=== PATIENT | female | born 2000 | race Caucasian/White ===

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

== ENCOUNTER 2019-08-25 15:47 | Emergency (ER) | payer BC, OTHER ==
[2019-08-25] MEDS ORDERED: ONDANSETRON ODT 8 MG TAB SL ONE (17:08)
[2019-08-25 17:29] VITALS: O2SAT 99
[2019-08-25] MEDS ORDERED: AMOXICILLIN & POT CLAVULANATE 875 MG TAB PO ONE (18:17)
[2019-08-25] MEDS ORDERED: NITROFURANTOIN MONOHYDRATE MAC 100 MG CAP PO ONE (18:17)
--- NOTE | 2019-08-25 18:21 | ED.PDOC ---
History of Present Illness - General Chief Complaint: General Stated Complaint: fever,sore throat,body aches,chest tightness Time Seen by Provider: 08/25/19 15:48 Source: patient Exam Limitations: no limitations - History of Present Illness Initial Comments: the patient is a 19-year-old female presenting to emergency room secondary to fever, sore throat, runny nose and body aches. The patient has had a history of multiple episodes of urosepsis in the past as well. She frequently gets these without any real urinary symptoms. She is also having some mild nausea. No syncope. Timing/Duration: 24 hours Severity: moderate Improving Factors: nothing Worsening Factors: nothing Associated Symptoms: cough, fever/chills, loss of appetite, malaise, nausea/vomiting Allergies/Adverse Reactions: Allergies Latex Allergy (Verified 09/30/18 11:47) Home Medications: Ambulatory Orders Etonogestrel [Nexplanon] 68 mg SC ONCE 09/30/18 Amoxicillin & Pot Clavulanate [Augmentin Tab] 875 mg PO BID #14 tab 08/25/19 Nitrofurantoin Monohydrate Mac [Macrobid] 100 mg PO BID #14 capsule 08/25/19 Review of Systems - Review of Systems Constitutional: States: chills, fever, malaise EENTM: States: nose congestion, throat pain Respiratory: States: cough Cardiology: States: no symptoms reported Gastrointestinal/Abdominal: States: nausea Genitourinary: States: no symptoms reported Musculoskeletal: States: back pain - mild right flank pain. Skin: States: no symptoms reported Neurological: States: headache Endocrine: States: no symptoms reported All other Systems: No Change from Baseline Past Medical History (General) - Patient Medical History Hx Seizures: No Hx Stroke: No Hx Asthma: No Hx of COPD: No Hx Congestive Heart Failure: No Hx Pacemaker: No Hx Hypertension: No Hx Diabetes: No Hx MRSA: No Surgical History: no surgical history - Vaccination History Hx Tetanus, Diphtheria Vaccination: Yes Hx Influenza Vaccination: Yes Hx Pneumococcal Vaccination: No - Social History Hx Tobacco Use: No Hx Alcohol Use: No Hx Substance Use: No Hx Physical Abuse: No Hx Emotional Abuse: No - Female History Patient is a Female of Child Bearing Age (10 -59 yrs old): Yes Patient : No Family Medical History - Family History Mother Family History: No Known Living Status: Still Living Physical Exam - Physical Exam General Appearance: Alert, No apparent distress Eye Exam: bilateral normal - ild chronic ptosis of the left eyelid. Ears, Nose, Throat: hearing grossly normal, nasal congestion, pharyngeal erythema Neck: full range of motion, supple Respiratory: lungs clear, normal breath sounds, no respiratory distress, no accessory muscle use Cardiovascular/Chest: normal peripheral pulses, regular rate, rhythm - borderline sinus tachycardia, no edema Peripheral Pulses: radial,right: 2+, radial,left: 2+ Gastrointestinal/Abdominal: non tender, soft Rectal Exam: deferred Back Exam: no CVA tenderness, no vertebral tenderness Extremity: normal range of motion, non-tender, normal inspection, no pedal edema, normal capillary refill Neurologic: rink rat II-XII nml as tested, alert, normal mood/affect, oriented x 3 Skin Exam: normal color Comments: Vital Signs - 8 hr 08/25/19 08/25/19 08/25/19 15:51 16:50 17:00 Temperature 98.7 F Pulse Rate [ 110 H 95 H 83 Left Brachial] Respiratory 20 20 18 Rate Blood Pressure 137/80 113/66 109/68 [Left Arm] O2 Sat by Pulse 99 98 99 Oximetry Progress - Progress Progress: 08/25/19 18:21 the patient is a 19-year-old female presenting to the emergency room secondary to symptoms of sore throat and runny nose and body aches along with fever and some mild flank pain. She has tested negative for flu and strep. The upper respiratory tract symptoms are most likely just a common cold. [id number] medication should help reduce symptoms. The patient does have another urinary tract infection. Given her history she is going to be double covered with Augmentin and Macrobid. She needs to take these medications with food as they can make the nausea worse. She does already have some Zofran at home for as needed use. ER warnings were given for any significant worsening. Keep well hydrated. Follow back up with primary care doctor towards the end of the week to follow up culture and repeat a urinalysis. benjamin solano [id number] - Results/Orders Results/Orders: Laboratory Tests 08/25/19 08/25/19 15:56 17:48 Urine Color Yellow Urine Appearance Sl cloudy Urine pH 7.0 Ur Specific [place] 1.020 Urine Protein Negative Urine Glucose (UA) Negative Urine Ketones Negative Urine Blood Trace-lysed H Urine Nitrite Negative Urine Bilirubin Negative Urine Urobilinogen 0.2 Ur Leukocyte Esterase Small H Urine RBC 5-10 H Urine WBC 20-30 H Ur Epithelial Cells 10-20 Urine Bacteria 2+ H Urine Mucus Small Group A Strep Rapid Negative influenza is negative. Departure - Departure Clinical Impression: Common cold UTI (urinary tract infection) Qualifiers: Urinary tract infection type: acute cystitis Hematuria presence: without hematuria Qualified Code(s): N30.00 - Acute cystitis without hematuria Disposition: Discharge to Home or Self Care Condition: Fair Departure Forms: ED Discharge - Pt. Copy, Patient Portal Self Enrollment Instructions: Urinary Tract Infection, Adult (DC) Diet: bland diet Activity: increase activity as tolerated Referrals: Patricia Grossman NP [Primary Care Provider] - 1-2 Weeks Prescriptions: Amoxicillin & Pot Clavulanate [Augmentin Tab] 875 mg PO BID #14 tab Nitrofurantoin Monohydrate Mac [Macrobid] 100 mg PO BID #14 capsule Home Medications: Ambulatory Orders Etonogestrel [Nexplanon] 68 mg SC ONCE 09/30/18 Amoxicillin & Pot Clavulanate [Augmentin Tab] 875 mg PO BID #14 tab 08/25/19 Nitrofurantoin Monohydrate Mac [Macrobid] 100 mg PO BID #14 capsule 08/25/19 Additional Instructions: the patient is a 19-year-old female presenting to the emergency room secondary to symptoms of sore throat and runny nose and body aches along with fever and some mild flank pain. She has tested negative for flu and strep. The upper respiratory tract symptoms are most likely just a common cold. [id number] medication should help reduce symptoms. The patient does have another urinary tract infection. Given her history she is going to be double covered with Augmentin and Macrobid. She needs to take these medications with food as they can make the nausea worse. She does already have some Zofran at home for as needed use. ER warnings were given for any significant worsening. Keep well hydrated. Follow back up with primary care doctor towards the end of the week to follow up culture and repeat a urinalysis.
[2019-08-25 18:42] VITALS: BP 101/67; TEMP 98.5
== END 2019-08-25 18:30 | disposition home or self-care (01) ==
LOC: ER 15:47
DX: N30.00 Acute cystitis without hematuria (principal); J00 Acute nasopharyngitis [common cold]; Z87.440 Personal history of urinary (tract) infections; Z91.010 Allergy to peanuts

== ENCOUNTER 2019-09-13 23:21 | Emergency (ER) | payer BC, OTHER ==
--- NOTE | 2019-09-13 23:42 | ED.PDOC ---
History of Present Illness - General Chief Complaint: General Stated Complaint: headache, n/v x3 days Time Seen by Provider: 09/13/19 23:34 Source: patient, RN notes reviewed, Vital Signs reviewed - History of Present Illness Initial Comments: Patient presents for evaluation of headache x 3 days. She denies fevers, chills, vision changes, weakness in extremities or numbness in extremities. She has had nausea and decreased appetite. Recently had flu two weeks ago. Headache gradual in nature. Took tylenol earlier this evening. No previous hx of migraines. Allergies/Adverse Reactions: Allergies Latex Allergy (Verified 09/30/18 11:47) Home Medications: Ambulatory Orders Etonogestrel [Nexplanon] 68 mg SC ONCE 09/30/18 Amoxicillin & Pot Clavulanate [Augmentin Tab] 875 mg PO BID #14 tab 08/25/19 Nitrofurantoin Monohydrate Mac [Macrobid] 100 mg PO BID #14 capsule 08/25/19 Promethazine Tab [Phenergan Tablet] 25 mg PO BID PRN #10 tab 09/14/19 Review of Systems - Review of Systems Constitutional: Denies: chills, fever EENTM: Denies: blurred vision, double vision, nose congestion Respiratory: Denies: cough, short of breath Gastrointestinal/Abdominal: States: nausea, vomiting. Denies: abdominal pain Musculoskeletal: Denies: neck pain Neurological: States: headache. Denies: numbness, weakness Past Medical History (General) - Patient Medical History Hx Seizures: No Hx Stroke: No Hx Asthma: No Hx of COPD: No Hx Congestive Heart Failure: No Hx Pacemaker: No Hx Hypertension: No Hx Diabetes: No Hx MRSA: No - Vaccination History Hx Tetanus, Diphtheria Vaccination: Yes Hx Influenza Vaccination: Yes Hx Pneumococcal Vaccination: No - Social History Hx Tobacco Use: No Hx Alcohol Use: No Hx Substance Use: No Hx Physical Abuse: No Hx Emotional Abuse: No - Female History Patient : No Family Medical History - Family History Mother Family History: No Known Living Status: Still Living Physical Exam - Physical Exam General Appearance: Alert, Other - Non-toxic. 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 She is afebrile and non-toxic. Symptoms do not suggest meningitis or SAH. ALBERTS has been ongoing for a few days. She has no leukocytosis. UA was not significant for signs of UTI. There was signs of dehydration on CMP. She was given a liter of IV fluids with improvement in symptoms. There was some improvement in nausea after zofran however some persistence. Therefore, she was given phernergan and toradol with improvement in headache and nausea. There was residual ALBERTS, therefore she was given benadryl and magnesium 2g over 15 minutes. This ALBERTS seems somewhat secondary to dehydration vs. new onset migraines. She is feeling better. Will discharge home with plans for outpatient follow-up. - Results/Orders Results/Orders: Laboratory Results WBC 8.5 K/mm3 (4.8-10.8) 09/14/19 00:05 RBC 4.48 M/mm3 (4.20-5.40) 09/14/19 00:05 Hgb 13.1 gm/dL (12.0-16.0) 09/14/19 00:05 Hct 38.7 % (36.0-47.0) 09/14/19 00:05 MCV 86.4 fl (81.0-99.0) 09/14/19 00:05 MCH 29.3 pg (27.0-31.0) 09/14/19 00:05 MCHC 33.9 g/dL (33.0-37.0) 09/14/19 00:05 RDW 13.3 % (11.5-14.5) 09/14/19 00:05 Plt Count 243 K/mm3 (130-400) 09/14/19 00:05 MPV 9.2 fl (7.40-10.4) 09/14/19 00:05 Absolute Neuts (auto) 4.40 K/uL (1.8-6.8) 09/14/19 00:05 Absolute Lymphs (auto) 3.30 K/uL (1.0-3.4) 09/14/19 00:05 Absolute Monos (auto) 0.60 K/uL (0.2-0.8) 09/14/19 00:05 Absolute Eos (auto) 0.10 K/uL (0.0-0.4) 09/14/19 00:05 Absolute Basos (auto) 0.10 K/uL (0.0-0.1) 09/14/19 00:05 Neutrophils % 51.3 % (42.0-78.0) 09/14/19 00:05 Lymphocytes % 38.9 % (20.0-50.0) 09/14/19 00:05 Monocytes % 7.6 % (2.0-9.0) 09/14/19 00:05 Eosinophils % 1.3 % (1.0-5.0) 09/14/19 00:05 Basophils % 0.9 % (0.0-2.0) 09/14/19 00:05 Sodium 141 mmol/L (135-145) 09/14/19 00:05 Potassium 3.3 mmol/L (3.6-5.0) L 09/14/19 00:05 Chloride 106 mmol/L (101-111) 09/14/19 00:05 Carbon Dioxide 23 mmol/L (21-31) 09/14/19 00:05 Anion Gap 15.3 (12-18) 09/14/19 00:05 BUN 11 mg/dL (7-18) 09/14/19 00:05 Creatinine 0.50 mg/dL (0.6-1.3) L 09/14/19 00:05 BUN/Creatinine Ratio 22.0 (10-20) H 09/14/19 00:05 Random Glucose 107 mg/dL (70-105) H 09/14/19 00:05 Serum Osmolality 281.1 mOsm/L (275-295) 09/14/19 00:05 Calcium 9.6 mg/dL (8.4-10.2) 09/14/19 00:05 Total Bilirubin 0.5 mg/dL (0.2-1.0) 09/14/19 00:05 AST 17 IU/L (10-42) 09/14/19 00:05 ALT 11 IU/L (10-60) 09/14/19 00:05 Alkaline Phosphatase 50 IU/L (75-270) L 09/14/19 00:05 Serum Total Protein 8.7 gm/dL (6.4-8.2) H 09/14/19 00:05 Albumin 4.9 g/dl (3.2-5.5) 09/14/19 00:05 Globulin 3.8 gm/dL (2.3-3.5) H 09/14/19 00:05 Albumin/Globulin Ratio 1.3 (1.1-1.9) 09/14/19 00:05 Urine Color Yellow (Yellow) 09/14/19 00:05 Urine Appearance Clear (Clear) 09/14/19 00:05 Urine pH 7.0 (4.5-7.8) 09/14/19 00:05 Ur Specific [place] 1.015 (1.005-1.030) 09/14/19 00:05 Urine Protein Negative mg/dL 09/14/19 00:05 Urine Glucose (UA) Negative mg/dL (Negative) 09/14/19 00:05 Urine Ketones Negative mg/dL (NEGATIVE) 09/14/19 00:05 Urine Blood Trace-intact (Negative) H 09/14/19 00:05 Urine Nitrite Negative 09/14/19 00:05 Urine Bilirubin Negative (NEGATIVE) 09/14/19 00:05 Urine Urobilinogen 0.2 mg/dL (0.2-1.0) 09/14/19 00:05 Ur Leukocyte Esterase Negative (Negative) 09/14/19 00:05 Urine RBC 0-1 /hpf 09/14/19 00:05 Urine WBC 0-1 /hpf 09/14/19 00:05 Ur Epithelial Cells 1-3 /hpf 09/14/19 00:05 Urine Bacteria Rare 09/14/19 00:05 Urine HCG, Qual Negative (NEGATIVE) 09/14/19 00:05 Departure - Departure Clinical Impression: Dehydration Headache Qualifiers: Headache type: unspecified Headache chronicity pattern: acute headache Intractability: not intractable Qualified Code(s): R51 - Headache Vomiting Qualifiers: Vomiting Intractability: non-intractable Nausea presence: with nausea Time of Disposition: :55 Disposition: Discharge to Home or Self Care Condition: Fair Departure Forms: ED Discharge - Pt. Copy, Patient Portal Self Enrollment Instructions: Headache, Adult Referrals: Patricia Grossman NP [Primary Care Provider] - 1-2 Weeks Prescriptions: Promethazine Tab [Phenergan Tablet] 25 mg PO BID PRN #10 tab PRN Reason: Nausea Home Medications: Ambulatory Orders Etonogestrel [Nexplanon] 68 mg SC ONCE 09/30/18 Amoxicillin & Pot Clavulanate [Augmentin Tab] 875 mg PO BID #14 tab 08/25/19 Nitrofurantoin Monohydrate Mac [Macrobid] 100 mg PO BID #14 capsule 08/25/19 Promethazine Tab [Phenergan Tablet] 25 mg PO BID PRN #10 tab 09/14/19 Comments: Humphrey Mcnally #[id number]
[2019-09-14 00:05] VITALS: TEMP 98.1
[2019-09-14] MEDS: SODIUM CHLORIDE 0.9% 1000ML 1,000 ML IVS ONE (00:12)
[2019-09-14] MEDS: ONDANSETRON INJ 4 MG/2 ML VIAL IV ONE (00:12)
[2019-09-14] MEDS ORDERED: PROMETHAZINE HCL INJ 25 MG/ML VIAL ONE (00:58)
[2019-09-14] MEDS ORDERED: SODIUM CHLORIDE 0.9% 50ML 50 ML ONE (00:59)
[2019-09-14] MEDS: PROMETHAZINE HCL INJ 12.5 MG in SODIUM CHLORIDE 0.9% 50ML 50 ML IVPB ONE (01:02)
[2019-09-14] MEDS: KETOROLAC TROMETHAMINE INJ 30 MG/ML VIAL IV ONE (01:03)
[2019-09-14] MEDS ORDERED: MAGNESIUM SULFATE PREMIX 2GM 50 ML IVPB ONE (01:37)
[2019-09-14] MEDS: MAGNESIUM SULFATE PREMIX 2GM 2 GM in PREMIX BAG 1 BAG IVPB ONE (01:39)
[2019-09-14] MEDS: diphenhydrAMINE HCL 50 MG/ML VIAL IV ONE (01:39)
[2019-09-14 02:06] VITALS: BP 108/60; O2SAT 97
== END 2019-09-14 02:25 | disposition home or self-care (01) ==
LOC: ER 23:21
DX: R51 Headache (principal); E86.0 Dehydration; R11.2 Nausea with vomiting, unspecified; Z79.899 Other long term (current) drug therapy; Z91.040 Latex allergy status
CPT/HCPCS: 80053; 81001; 81025; 85025; A4216; J1200; J1885; J2405; J2550; J3475; J7030

== ENCOUNTER 2020-03-03 23:12 | Emergency (ER) | payer BC, OTHER ==
[2020-03-03] MEDS ORDERED: SODIUM CHLORIDE 0.9% 1000ML 1,000 ML IVS ONE (23:17)
[2020-03-03] MEDS ORDERED: SODIUM CHLORIDE 0.9% (FLUSH) 10 ML SYG IV PRN (23:17)
--- NOTE | 2020-03-03 23:18 | ED.PDOC ---
History of Present Illness - General Time Seen by Provider: 03/03/20 23:13 Source: patient - History of Present Illness Initial Comments: 19 yo female with PMH of urosepsis who presents with cc of lower abdominal pain. Onset yesterday and worsened further this evening while at work. Reports waxing and waning sharp pains to the entire lower abdominal region without radiation which come and go and brief bursts, no known exacerbating factors. Currently reports 5/10 severity pain. No medications taken for relief. Reports additionally nausea without emesis and one episode of watery diarrhea yesterday. Denies any fevers, chills, dysuria/hematuria, back/flank pain, chest pain, shortness of breath, cough, sore throat. She is scheduled to establish care with Dr. Devries. She sees Dr. Velasquez (urology) in [place]. Given her history of severe UTIs and urosepsis in the past requiring hospital admission, she became concerned about her symptoms and presented to the ED for further evaluation. Allergies/Adverse Reactions: Allergies Latex Allergy (Verified 03/03/20 23:31) Home Medications: Ambulatory Orders Ciprofloxacin HCl [Ciprofloxacin Hydrochlori] 500 mg PO BID 7 Days #14 tab Fluconazole [Diflucan Tab] 150 mg PO Q72H PRN 15 Days #3 tab 03/04/20 Review of Systems - Review of Systems Review of Systems: 03/03/20 23:30 as per HPI All other Systems: Reviewed and Negative Past Medical History (General) - Patient Medical History Hx Seizures: No Hx Stroke: No Hx Asthma: No Hx of COPD: No Hx Congestive Heart Failure: No Hx Pacemaker: No Hx Hypertension: No Hx Diabetes: No Hx MRSA: No - Vaccination History Hx Tetanus, Diphtheria Vaccination: Yes Hx Influenza Vaccination: Yes Hx Pneumococcal Vaccination: No - Social History Hx Tobacco Use: No Hx Alcohol Use: No Hx Substance Use: No Hx Physical Abuse: No Hx Emotional Abuse: No - Female History Patient : No Family Medical History - Family History Mother Family History: No Known Living Status: Still Living Physical Exam - Physical Exam General Appearance: Alert, Comfortable, No apparent distress Eye Exam: bilateral normal Ears, Nose, Throat: hearing grossly normal, normal ENT inspection, normal pharynx Neck: non-tender, full range of motion, supple, normal inspection Respiratory: lungs clear, normal breath sounds, no respiratory distress, no accessory muscle use Cardiovascular/Chest: normal peripheral pulses, regular rate, rhythm, no edema, no gallop, no JVD, no murmur Peripheral Pulses: radial,right: 2+, radial,left: 2+ Gastrointestinal/Abdominal: normal bowel sounds, soft, tenderness - Moderate TTP without guarding to suprapubic region, RLQ, LLQ. Obturator and psoas signs are positive. Back Exam: normal inspection, no CVA tenderness, no vertebral tenderness Extremity: normal range of motion, non-tender, normal inspection, no pedal edema, normal capillary refill Neurologic: no motor/sensory deficits, alert, normal mood/affect, oriented x 3 Skin Exam: normal color, warm/dry Progress - Progress Progress: 03/03/20 23:31 Lower abdominal pain -Consider UTI, pyelonephritis, sepsis, gastroenteritis, appendicitis, ovarian cyst, , constipation, mesenteric adenitis, other -Patient afebrile, vitals WNL -Obtain blood work, UA, hCG -Place PIV, 1 L NS bolus, Zofran 4 mg IV 03/04/20 00:24 -Patient remained stable, reports pain much improved -UA shows 3-5 WBC, moderate leukocyte esterase, rare bacteria, negative nitrites, 1+ yeast. HCG is neg. Serum WBC 9900 with 60% segs and no bands, lactate is 0.9. Labs otherwise largely unremarkable. -Discussed findings and diagnosis of UTI with patient. Last positive urine culture here was 09/2018 which grew out >100k E. coli at that time which was resistant to Bactrim and tetracyclines, sensitive to all others tested including Cipro. Will treat with Cipro 500 mg p.o. twice daily for 7 days. For the yeast, will treat with Diflucan 150 mg p.o. x1 here in the ED. We will give also Rx of Diflucan 150 mg p.o. every 72 hours as needed for any return of yeast infection symptoms while on antibiotics. We will also send home with as needed Rx of Tylenol 3 in case of breakthrough pain -Discharged home in good condition, ED return precautions discussed at length. Kwaku Beck MD Billing #[id number] 03/03/20 23:17 IV Care:Saline Lock per Protoc QSHIFT Sodium Chloride 0.9% (Flush) [Saline Flush Syringe] 10 ml IV PRN PRN 03/03/20 23:30 Urine Culture Stat Laboratory Results - last 24 hr 03/03/20 03/03/20 03/03/20 23:30 23:30 23:30 WBC 9.9 RBC 4.62 Hgb 13.5 Hct 39.5 MCV 85.4 MCH 29.3 MCHC 34.3 RDW 13.0 Plt Count 203 MPV 9.3 Absolute Neuts (auto) 5.90 Absolute Lymphs (auto) 3.00 Absolute Monos (auto) 0.70 Absolute Eos (auto) 0.20 Absolute Basos (auto) 0.10 Neutrophils % 60.2 Lymphocytes % 30.3 Monocytes % 6.6 Eosinophils % 2.0 Basophils % 0.9 Sodium 138 Potassium 3.4 L Chloride 105 Carbon Dioxide 24 Anion Gap 12.4 BUN 12 Creatinine 0.56 L BUN/Creatinine Ratio 21.4 H Random Glucose 105 Serum Osmolality 275.8 Lactic Acid Calcium 9.3 Total Bilirubin 0.4 Direct Bilirubin < 0.1 Indirect Bilirubin 0.3 AST 16 ALT 13 Alkaline Phosphatase 56 L Serum Total Protein 9.0 H Albumin 4.7 Lipase 37 Serum HCG, Qual Negative Urine Color Urine Appearance Urine pH Ur Specific [place] Urine Protein Urine Glucose (UA) Urine Ketones Urine Blood Urine Nitrite Urine Bilirubin Urine Urobilinogen Ur Leukocyte Esterase Urine RBC Urine WBC Ur Epithelial Cells Urine Bacteria Urine Yeast 03/03/20 03/03/20 23:30 23:30 WBC RBC Hgb Hct MCV MCH MCHC RDW Plt Count MPV Absolute Neuts (auto) Absolute Lymphs (auto) Absolute Monos (auto) Absolute Eos (auto) Absolute Basos (auto) Neutrophils % Lymphocytes % Monocytes % Eosinophils % Basophils % Sodium Potassium Chloride Carbon Dioxide Anion Gap BUN Creatinine BUN/Creatinine Ratio Random Glucose Serum Osmolality Lactic Acid 0.9 Calcium Total Bilirubin Direct Bilirubin Indirect Bilirubin AST ALT Alkaline Phosphatase Serum Total Protein Albumin Lipase Serum HCG, Qual Urine Color Straw Urine Appearance Sl cloudy Urine pH 7.0 Ur Specific [place] 1.015 Urine Protein Negative Urine Glucose (UA) Negative Urine Ketones Negative Urine Blood Negative Urine Nitrite Negative Urine Bilirubin Negative Urine Urobilinogen 0.2 Ur Leukocyte Esterase Moderate H Urine RBC 0-1 Urine WBC 3-5 H Ur Epithelial Cells 3-5 Urine Bacteria Rare Urine Yeast 1+ H Departure - Departure Clinical Impression: UTI (urinary tract infection) Qualifiers: Urinary tract infection type: acute cystitis Hematuria presence: without hematuria Qualified Code(s): N30.00 - Acute cystitis without hematuria Time of Disposition: 00:29 Disposition: Discharge to Home or Self Care Condition: Good Instructions: Urinary Tract Infection, Adult (DC) Diet: resume usual diet Activity: increase activity as tolerated Referrals: Patricia Grossman NP [Primary Care Provider] - 1-2 Weeks Prescriptions: Ciprofloxacin HCl [Ciprofloxacin Hydrochlori] 500 mg PO BID 7 Days #14 tab Fluconazole [Diflucan Tab] 150 mg PO Q72H PRN 15 Days #3 tab PRN Reason: Rash Home Medications: Ambulatory Orders Ciprofloxacin HCl [Ciprofloxacin Hydrochlori] 500 mg PO BID 7 Days #14 tab 03/04/20 Fluconazole [Diflucan Tab] 150 mg PO Q72H PRN 15 Days #3 tab 03/04/20 Additional Instructions: Remain well-hydrated and gradually advance your diet and activity level as tolerated. Take the antibiotics as directed and finish the full course even if well. You may take the Diflucan as directed every 3 days as needed for any symptoms of yeast infection while taking the antibiotics. Continue taking [id number] medicines for pain such as ibuprofen 600 mg every 6 hours as needed and Tylenol 650 mg every 6 hours as needed. You may take the Tylenol 3 as directed for breakthrough pain. Do not drive or operate heavy machinery while taking as it may cause drowsiness. Return to the ED if your symptoms worsen or other concerning symptoms develop such as severe abdominal pain, intractable nausea and vomiting, fevers, blood in the urine or stool, etc. Follow-up closely with your primary care physician and with your urologist as scheduled or sooner as needed.
[2020-03-03] MEDS ORDERED: KETOROLAC TROMETHAMINE INJ 30 MG/ML VIAL IV ONE (23:26)
[2020-03-03] MEDS ORDERED: ONDANSETRON INJ 4 MG/2 ML VIAL IV ONE (23:26)
[2020-03-03 23:31] VITALS: TEMP 97.8
[2020-03-04] MEDS ORDERED: ACETAMINOPHEN W/COD #3 TAB (ER Disp) PO ONE (00:23)
[2020-03-04] MEDS ORDERED: CIPROFLOXACIN 500 MG TAB PO ONE (00:23)
[2020-03-04] MEDS ORDERED: FLUCONAZOLE 150 MG TAB PO ONE (00:23)
[2020-03-04 00:41] VITALS: BP 126/74; O2SAT 100
== END 2020-03-04 00:49 | disposition home or self-care (01) ==
LOC: ER 23:12
DX: N30.00 Acute cystitis without hematuria (principal); R11.0 Nausea; R19.7 Diarrhea, unspecified
CPT/HCPCS: 80048; 80076; 81001; 83605; 83690; 84703; 85025; 87086; A4216; J1885; J2405; J7030

== ENCOUNTER → 2020-07-15 | Outpatient (CLI) | payer SELFPAY | LOC: YCFC.O 11:22 | PROVIDERS: ATTEND Nurse Practitioner Family | DX: N39.0 Urinary tract infection, site not specified (principal) ==